=== PATIENT | male | born 1945 | race Caucasian/White ===

== ENCOUNTER 2023-08-23 06:45 | Day surgery (SDC) | payer OTHER, SELFPAY ==
[2023-08-19 07:20] VITALS: BMI 23.1
[2023-08-19 08:47] LABS: Hematocrit 46.7 % (39.0-52.0); Hemoglobin 15.1 g/dL (13.0-18.0); Mean Corp Hgb Conc. 32.3 g/dL (33.0-37.0); Mean Corpuscular Hgb 29.9 pg (27.0-31.0); Mean Corpuscular Volume 92.5 fL (80.0-94.0); Platelet Count 173 10^3/uL (130-400); Red Blood Cell Count 5.05 10^6/uL (4.70-6.10); Red Cell Dist. Width 12.8 % (11.5-14.5); White Blood Cell Count 7.1 10^3/uL (4.8-10.8)
[2023-08-19 09:46] LABS: Blood Urea Nitrogen 26 mg/dl (9-20); Calcium 10.2 mg/dl (8.4-10.2); Carbon Dioxide 24 mmol/L (22-30); Chloride 105 mmol/L (98-107); Estimated Creatinine Clearance 35 ml/min; Glucose 95 mg/dl (70-99); Potassium 4.1 mmol/L (3.5-5.1); Sodium 139 mmol/L (135-145)
[2023-08-23] VITALS (10 sets, daily range): BP systolic 132–159; BP diastolic 70–77; BMI 23.1
[2023-08-23] MEDS: TYLENOL 1000 MG PO (13:28)
[2023-08-23] MEDS: NORMOSOL-R 1000 IV (13:53)
--- NOTE | 2023-08-23 14:34 | W.SUR.PREOP ---
Pre-Operative Surgical Note
-
I have examined this patient prior to the performance of the scheduled procedure.
The patient's condition is unchanged from the time of the current History and
Physical and the patient is able to undergo the scheduled procedure.
--- NOTE | 2023-08-23 16:34 | W.IMMPOSTOP ---
Addendum entered and electronically signed by Tor Castaneda MD 08/23/23 16:42:
#[id number]
Original Note:
Surgical Immed Post Op Note
-
Primary Surgeon: Leonel
Assisting Surgeon: Jarred Condon PGY 1
Pre-op Diagnosis: LIH
Post-op Diagnosis: LIH indirect + direct
Procedure Performed: RAL MARITA LIH repair with mesh; 3d max lg mid
Anesthesia Type: GETA + 0.25% Marcaine
Specimen / Cultures: none
Estimated Blood Loss: 6mL
Complications: none immediate
Operative Findings: LIH - indirect and direct; no lipoma; 3d max large mid wt mesh repair. MARITA
== END 2023-08-23 18:31 | disposition home or self-care (01) ==
LOC: SDS 06:45
PROVIDERS: ATTENDING PHYSICIAN Surgery; FAMILY PHYSICIAN Family Medicine; OTHER PHYSICIAN Specialist
DX: K40.90 Unilateral inguinal hernia, without obstruction or gangrene, not specified as recurrent (principal)
CPT/HCPCS: 49650; 36415; 80048; 85027; 93005; C1781